=== PATIENT | male | born 1990 | race Asian ===

== ENCOUNTER 2021-09-21 16:26 | Emergency (ER) | payer OTHER ==
[~2021-09-21] VITALS: Ht 182.9 cm; Wt 129.3 kg
[2021-09-21 16:30] VITALS: BP 166/94; TEMP 97.8
== END 2021-09-21 17:25 | disposition home or self-care (01) ==
LOC: ED 16:26
DX: K02.9 Dental caries, unspecified (principal)
CPT/HCPCS: 96372; 99281; J1885